=== PATIENT | male | born 1965 | race Caucasian/White ===

== ENCOUNTER 2017-03-10 09:10 | Emergency (ER) | payer BC ==
[2017-03-10 09:25] VITALS: BP 179/96
[2017-03-10] MEDS ORDERED: Aspirin Low Dose CHEW TAB* 81 MG ONE (09:31)
--- NOTE | 2017-03-10 11:01 | UC ---
Cardiac HPI - HPI Summary HPI Summary: 51 yo gentleman c/o on and off chest pain midsternal x approx 3 weeks. C/o episode pain this am approx 7am. + c/o anxiety sx, unclear whether cause or results of pain. Recent bronchitis possible sinusitis, completed levofloxacin. Still coughing a little. No fever. No sob perse. No rash. No n/v/d. Hx dm 2, htn. Works hard physically outdoors. No new weakness. No recent travel. - History of Current Complaint Chief Complaint: UCChestPain Stated Complaint: CHEST PAIN Time Seen by Provider: 03/10/17 09:11 Hx Obtained From: Patient Pain Intensity: 3 - Allergy/Home Medications Allergies/Adverse Reactions: Allergies Allergy/AdvReac Type Severity Reaction Status Date / Time Amoxicillin [From Augmentin] Allergy makes Verified 03/10/17 09:19 things worse Clavulanic Acid Allergy makes Verified 03/10/17 09:19 [From Augmentin] things worse Dust Mite Extract Allergy Eyes Verified 08/01/13 09:22 Itchy/Swollen/Red/Watery dairy Allergy GI Upset Uncoded 08/01/13 09:23 Home Medications: Home Medications Sitagliptin Phosphate [Januvia] 100 mg PO DAILY 03/10/17 [History Confirmed 03/17] PMH/Surg Hx/FS Hx/Imm Hx Previously Healthy: Yes - however, see hpi - Surgical History Surgical History: None - Social History Alcohol Use: Occasionally Substance Use Type: None Smoking Status (MU): Never Smoked Tobacco Review of Systems Constitutional: Negative Skin: Negative Eyes: Negative ENT: Negative Respiratory: Cough, Other - see hpi Cardiovascular: Negative Gastrointestinal: Negative Genitourinary: Negative Motor: Negative Neurovascular: Negative Musculoskeletal: Arthralgia Neurological: Negative - no new reported Psychological: Other - see hpi Is Patient Immunocompromised?: No All Other Systems Reviewed And Are Negative: Yes Physical Exam Triage Information Reviewed: Yes Appearance: Well-Nourished Vital Signs: Initial Vital Signs Temp 97.8 F 03/10/17 09:22 Pulse 60 03/10/17 09:22 Resp 16 03/10/17 09:22 BP 179/96 03/10/17 09:22 Pulse Ox 99 03/10/17 09:22 Vital Signs Reviewed: Yes Eye Exam: Normal - grossly normal ENT Exam: Normal - grossly normal Neck: Positive: Supple Respiratory Exam: Other - c/o midsternal discomfort Respiratory: Positive: Lungs clear, Normal breath sounds, No respiratory distress, No accessory muscle use Cardiovascular Exam: Normal Cardiovascular: Positive: RRR - correlates with left radial pulse, No Murmur, Pulses Normal, Brisk Capillary Refill Abdominal Exam: Normal Musculoskeletal Exam: Normal - moves all 4 ext's, gait steady. Neurological Exam: Normal - detailed neuro exam not done. Grossly nonfocal. Does have hx chronic p/d. Psychological Exam: Normal - conversing easily and appropriately. understandably concerned Skin Exam: Normal - nondiaphoretic. good color. - Assessment/Plan Course Of Treatment: Reviewed past ekg from 2013. Similar to today, but today v2 inverted T. Took aspirin x 4 (Adult) this am prior to arrival, as such this was not given here. Would benefit from eval / management in ED. After consideration, he agrees albeit reluctantly to go to the ED. Will drive himself. I called ED, MD/ PA/FRUIT CULLER not available, as such spoke with Alison LIND who will pass on the info to the appropriate provider. Questions as posed answered to the best of my ability. Consider cardiac, pulmonary, endocrine, anxiety. - Clinical Impression Provider Diagnoses: chest pain Discharge - Discharge Plan Condition: Stable Disposition: HOME Referrals: Dangelo Connell MD [Primary Care Provider] - Additional Instructions: Please go directly to the Emerg Department.
[2017-03-11] MEDS ORDERED: Aspirin Low Dose CHEW TAB* 81 MG PO SCH (09:00)
== END 2017-03-10 09:45 | disposition home or self-care (01) ==
LOC: UCEAST 09:10
DX: R07.9 Chest pain, unspecified (principal); Z88.1 Allergy status to other antibiotic agents
CPT/HCPCS: 93005; 99212; A9270-GY; G0463

== ENCOUNTER 2017-03-10 10:06 | Emergency (ER) | payer BC ==
[2017-03-10] MEDS ORDERED: Nitroglycerin TAB 0.4 MG* 0.4 MG TAB SL ONE (11:03)
[2017-03-10 11:18] LABS: Hematocrit 43 % (42-52); Hemoglobin 14.9 g/dl (14.0-18.0); Mean Corpuscular HGB Conc 35 g/dl (31-36); Mean Corpuscular Hemoglobin 32 pg (27-31); Mean Corpuscular Volume 92 fL (80-94); Mean Platelet Volume 8 um3 (7.4-10.4); Red Blood Count 4.63 10^6/ul (4.0-5.4); Red Cell Distribution Width 13 % (10.5-15); White Blood Count 7.4 10^3/ul (3.5-10.8)
[2017-03-10 11:34] LABS: Albumin 4.8 g/dL (3.2-5.2); BUN/Creatinine Ratio 9.1 (8-20); Calcium 9.9 mg/dL (8.6-10.3); EGFR African American 81.3 (>60); EGFR Non-African American 63.2 (>60); Potassium 4.1 mmol/L (3.5-5.0); Total Bilirubin 0.9 mg/dL (0.2-1.0); Total Protein 7.8 g/dL (6.4-8.9)
--- NOTE | 2017-03-10 11:59 | RAD ---
HISTORY: Chest pain COMPARISONS: August 01, 2013 VIEWS: 4: Frontal dual-energy and lateral views of the chest. FINDINGS: CARDIOMEDIASTINAL SILHOUETTE: The cardiomediastinal silhouette is normal. JIAN: The jian are normal. PLEURA: The costophrenic angles are sharp. No pleural abnormalities are noted. LUNG PARENCHYMA: The lungs are clear. ABDOMEN: The upper abdomen is clear. There is no subphrenic gas. BONES AND SOFT TISSUES: No bone or soft tissue abnormalities are noted. OTHER: None. IMPRESSION: NO ACTIVE CARDIOPULMONARY DISEASE.
[2017-03-10 19:28] VITALS: BP 138/100
--- NOTE | 2017-03-13 12:25 | ED ---
Franchesca Mills Thomas, scribed for Casimiro Huerta MD on 03/10/17 at 1114 . HPI Chest Pain - HPI Summary HPI Summary: The pt is a 51 y/o M presenting to the ED c/o intermittent mid-sternal CP that began three weeks ago. The pt rates the pain 3/10. The CP does not radiate. He has a Hx of of anxiety and says that his CP is worsened when he becomes anxious. However, he still has CP even when not anxious. His CP is not worsened with deep breaths. The patient took ASA 324 earlier today. When he experiences CP, he sometimes has tingling in his neck as well as blurry vision. He additionally c/o a cough with clear production and intermittent SOB. He denies hemoptysis. PMHx: DM, HTN, seasonal allergies. SHx: no smoking, occasional alcohol use. He last had a stress test performed three years ago. The patient does not want to be admitted for observation even when informed of the risks including ACS. - History of Current Complaint Chief Complaint: EDChestPainROMI Time Seen by Provider: 03/10/17 10:44 Hx Obtained From: Patient Onset/Duration: Started Weeks Ago - onset of CP three weeks ago, Still Present Timing: Intermittent Pain Intensity: 3 Pain Scale Used: 0-10 Numeric Chest Pain Location: Mid Sternal Chest Pain Radiates: No Aggravating Factor(s): Other: - Anxiety Alleviating Factor(s): Nothing Associated Signs and Symptoms: Positive: Chest Pain, Anxiety, Shortness of Breath - intermittent, Other: - Blurry vision. Negative: Productive Cough - with clear production, Hemoptysis - Allergy/Home Medications Allergies/Adverse Reactions: Allergies Allergy/AdvReac Type Severity Reaction Status Date / Time Amoxicillin [From Augmentin] Allergy makes Verified 03/10/17 09:19 things worse Clavulanic Acid Allergy makes Verified 03/10/17 09:19 [From Augmentin] things worse Dust Mite Extract Allergy Eyes Verified 08/01/13 09:22 Itchy/Swollen/Red/Watery dairy Allergy GI Upset Uncoded 08/01/13 09:23 Home Medications: Home Medications Atenolol TAB* [Tenormin TAB* 25 MG] 50 mg PO DAILY 03/10/17 [History Confirmed 03/10/17] Atorvastatin* [Lipitor*] 10 mg PO DAILY 03/10/17 [History Confirmed 03/10/17] Beclomethasone Dipropionate (N [Qnasl] 2 spray BOTH NARES DAILY 03/10/17 [ History Confirmed 03/10/17] DOXYcycline CAP(*) [DOXYcycline 100MG CAP(*)] 100 mg PO DAILY 03/10/17 [History Confirmed 03/10/17] Febuxostat(NF) [Uloric(NF)] 40 mg PO DAILY 03/10/17 [History Confirmed 03/10/17] Montelukast Sodium TAB* [Singulair TAB*] 10 mg PO DAILY 03/10/17 [History Confirmed 03/10/17] SitaGLIPtin (NF) [Januvia (NF)] 100 mg PO DAILY 03/10/17 [History Confirmed 03/17] PMH/Surg Hx/FS Hx/Imm Hx Previously Healthy: No Endocrine/Hematology History: Reports: Hx Diabetes - po meds /diet controlled Cardiovascular History: Reports: Hx Hypertension Denies: Hx Pacemaker/ICD History: Denies: Hx Renal Disease Sensory History: Denies: Hx Hearing Aid Psychiatric History: Denies: Hx Panic Disorder - Surgical History Surgery Procedure, Year, and Place: None - Immunization History Date of Tetanus Vaccine: Unknown Infectious Disease History: No Infectious Disease History: Denies: Hx Clostridium Difficile, Hx Hepatitis, Hx Human Immunodeficiency Virus (HIV), Hx of Known/Suspected MRSA, Hx Shingles, Hx Tuberculosis, Hx Known/ Suspected VRE, Hx Known/Suspected VRSA, History Other Infectious Disease, Traveled Outside the [place] in Last 30 Days - Family History Known Family History: Negative: Cardiac Disease - Social History Alcohol Use: Occasionally Substance Use Type: Reports: None Smoking Status (MU): Never Smoked Tobacco Review of Systems Negative: Fever, Chills Positive: Blurred Vision. Negative: Erythema - eyes Negative: Sore Throat Positive: Chest Pain - mid sternal CP onset three weeks ago and worsened with anxiety Positive: Shortness Of Breath, Cough - with clear production. Negative: Other - NEGATIVWE: hemoptysis Negative: Abdominal Pain, Vomiting, Nausea Negative: dysuria, hematuria Negative: Myalgia, Edema - legs Negative: Rash Neurological: Other - NEGATIVE: dizziness All Other Systems Reviewed And Are Negative: Yes Physical Exam - Summary Physical Exam Summary: Constitutional: Well-developed, Well-nourished, Alert. (-) Distressed Skin: Warm, Dry HENT: Normocephalic; Atraumatic Eyes: Conjunctiva normal Neck: Musculoskeletal ROM normal neck. (-) JVD, (-) Stridor, (-) Tracheal deviation Cardio: Rhythm regular, rate normal, Heart sounds normal; Intact distal pulses; The pedal pulses are 2+ and symmetric. Radial pulses are 2+ and symmetric. (-) Murmur Pulmonary/Chest wall: Effort normal. (-) Respiratory distress, (-) Wheezes, (-) Rales Abd: Soft, (-) Tenderness, (-) Distension, (-) Guarding, (-) Rebound Musculoskeletal: (-) Edema Lymph: (-) Cervical adenopathy Neuro: Alert, Oriented x3 Psych: Mood and affect Normal Vital Signs On Initial Exam: Initial Vitals Temp Pulse Resp BP Pulse Ox 98.0 F 56 14 164/92 98 03/10/17 10:15 03/10/17 10:15 03/10/17 10:15 03/10/17 10:15 03/10/17 10:15 Diagnostics - Vital Signs Vital Signs Temp Pulse Resp BP Pulse Ox 03/10/17 10:15 98.0 F 56 14 164/92 98 - Laboratory Lab Results: Lab Results 03/10/17 03/10/17 03/10/17 Range/Units 11:05 11:05 11:05 WBC 7.4 (3.5-10.8) 10^3/ul RBC 4.63 (4.0-5.4) 10^6/ul Hgb 14.9 (14.0-18.0) g/dl Hct 43 (42-52) % MCV 92 (80-94) fL MCH 32 H (27-31) pg MCHC 35 (31-36) g/dl RDW 13 (10.5-15) % Plt Count 143 L (150-450) 10^3/ul MPV 8 (7.4-10.4) um3 Neut % (Auto) 76.8 (38-83) % Lymph % (Auto) 15.5 L (25-47) % Yell % (Auto) 6.6 (1-9) % Eos % (Auto) 0.4 (0-6) % Baso % (Auto) 0.7 (0-2) % Absolute Neuts (auto) 5.6 (1.5-7.7) 10^3/ul Absolute Lymphs (auto) 1.1 (1.0-4.8) 10^3/ul Absolute Monos (auto) 0.5 (0-0.8) 10^3/ul Absolute Eos (auto) 0 (0-0.6) 10^3/ul Absolute Basos (auto) 0 (0-0.2) 10^3/ul Absolute Nucleated RBC 0.01 10^3/ul Nucleated RBC % 0.2 D-Dimer, Quantitative < 200 (Less Than 230) ng/mL Sodium 137 (133-145) mmol/L Potassium 4.1 (3.5-5.0) mmol/L Chloride 104 (101-111) mmol/L Carbon Dioxide 26 (22-32) mmol/L Anion Gap 7 (2-11) mmol/L BUN 11 (6-24) mg/dL Creatinine 1.21 H (0.67-1.17) mg/dL Est GFR ( Amer) 81.3 (>60) Est GFR (Non-Af Amer) 63.2 (>60) BUN/Creatinine Ratio 9.1 (8-20) Glucose 154 H (70-100) mg/dL Lactic Acid (0.5-2.0) mmol/L Calcium 9.9 (8.6-10.3) mg/dL Total Bilirubin 0.90 (0.2-1.0) mg/dL AST 36 (13-39) U/L ALT 36 (7-52) U/L Alkaline Phosphatase 68 (34-104) U/L Troponin I 0.00 (<0.04) ng/mL Total Protein 7.8 (6.4-8.9) g/dL Albumin 4.8 (3.2-5.2) g/dL Globulin 3.0 (2-4) g/dL Albumin/Globulin Ratio 1.6 (1-3) 03/10/17 03/10/17 Range/Units 11:05 13:42 WBC (3.5-10.8) 10^3/ul RBC (4.0-5.4) 10^6/ul Hgb (14.0-18.0) g/dl Hct (42-52) % MCV (80-94) fL MCH (27-31) pg MCHC (31-36) g/dl RDW (10.5-15) % Plt Count (150-450) 10^3/ul MPV (7.4-10.4) um3 Neut % (Auto) (38-83) % Lymph % (Auto) (25-47) % Yell % (Auto) (1-9) % Eos % (Auto) (0-6) % Baso % (Auto) (0-2) % Absolute Neuts (auto) (1.5-7.7) 10^3/ul Absolute Lymphs (auto) (1.0-4.8) 10^3/ul Absolute Monos (auto) (0-0.8) 10^3/ul Absolute Eos (auto) (0-0.6) 10^3/ul Absolute Basos (auto) (0-0.2) 10^3/ul Absolute Nucleated RBC 10^3/ul Nucleated RBC % D-Dimer, Quantitative (Less Than 230) ng/mL Sodium (133-145) mmol/L Potassium (3.5-5.0) mmol/L Chloride (101-111) mmol/L Carbon Dioxide (22-32) mmol/L Anion Gap (2-11) mmol/L BUN (6-24) mg/dL Creatinine (0.67-1.17) mg/dL Est GFR ( Amer) (>60) Est GFR (Non-Af Amer) (>60) BUN/Creatinine Ratio (8-20) Glucose (70-100) mg/dL Lactic Acid 1.0 (0.5-2.0) mmol/L Calcium (8.6-10.3) mg/dL Total Bilirubin (0.2-1.0) mg/dL AST (13-39) U/L ALT (7-52) U/L Alkaline Phosphatase (34-104) U/L Troponin I 0.00 (<0.04) ng/mL Total Protein (6.4-8.9) g/dL Albumin (3.2-5.2) g/dL Globulin (2-4) g/dL Albumin/Globulin Ratio (1-3) Result Diagrams: 03/10/17 11:05 03/10/17 11:05 Lab Statement: Any lab studies that have been ordered have been reviewed, and results considered in the medical decision making process. - Radiology CXR Xray Interpretation: No Acute Changes - No active cardiopulmonary diseased. ED physician has reviewed this report and agrees. Radiology Interpretation Completed By: Radiologist - EKG 10:45 Cardiac Rate: NL - 53 BPM EKG Rhythm: Sinus Bradycardia EKG Interpretation: No STEMI Chest Pain Course/Dx - Course Assessment/Plan: The pt is a 51 y/o M presenting to the ED c/o intermittent mid- sternal CP that began three weeks ago. The pt rates the pain 3/10. The CP does not radiate. He has a Hx of of anxiety and says that his CP is worsened when he becomes anxious. However, he still has CP even when not anxious. His CP is not worsened with deep breaths. The patient took ASA 324 earlier today. When he experiences CP, he sometimes has tingling in his neck as well as blurry vision. He additionally c/o a cough with clear production and intermittent SOB. He denies hemoptysis. PMHx: DM, HTN, seasonal allergies. SHx: no smoking, occasional alcohol use. He last had a stress test performed three years ago. The patient does not want to be admitted for observation even when informed of the risks including ACS. In the ED course the patient was given NTG. Bloodwork was obtained and troponin #1 0.00, troponin #2 0.00, and D-dimer less than 200. EKG was negative for STEMI. The patient is diagnosed with CP and anxiety. The patient has decided to leave against medical advice. I printed gave the patient information detailing how to follow up with cardiology, although I made it explicitly clear to him that he was still leaving against medical advice. I attempted to arrange an outpatient stress test, but this is not possible from the emergency department. - Diagnoses Provider Diagnoses: Chest pain, unspecified - Provider Notifications Discussed Care Of Patient With: Jesus Whitaker Time Discussed With Above Provider: 13:43 Instructed by Provider To: Other - I consulted with Dr. Whitaker, cardiology, regarding the scheduling of an urgent stress test as the patient is unwilling to be admitted for observation. Discharge - Discharge Plan Condition: Fair Disposition: AGAINST MEDICAL ADVICE Referrals: Jesus Whitaker MD [Medical Doctor] - As Soon As Possible The documentation as recorded by the Franchesca thomas Thomas accurately reflects the service I personally performed and the decisions made by me, Casimiro Huerta MD.
== END 2017-03-10 15:33 | disposition left against medical advice (07) ==
LOC: ED 10:06
DX: R07.9 Chest pain, unspecified (principal); F41.9 Anxiety disorder, unspecified; R06.02 Shortness of breath; H53.8 Other visual disturbances
CPT/HCPCS: 36415; 71020; 80053; 83605; 84484; 85025; 85379; 93005; 99283

== ENCOUNTER 2023-12-23 08:23 | Inpatient (IN) ==
[2023-12-23 09:20] LABS: Hematocrit 29.7 % (38-53); Mean Corpuscular Hemoglobin 31.7 pg (27-33); Mean Corpuscular Hgb Conc 33.5 g/dL (31-36); Mean Corpuscular Volume 94.6 fL (80-97); Red Blood Count 3.14 10^6/uL (4.06-5.63); Red Cell Distribution Width 19.3 % (12-17); White Blood Count 6.2 10^3/uL (3.6-10.2)
[2023-12-23] MEDS: Cefepime 2 GM in Dextrose 2 GM/50 ML BAG IV ONE (09:25)
[2023-12-23] MEDS: Lactated Ringers 1000 ml BAG 1,000 ML IV ONE (09:25)
[2023-12-23] MEDS: Lactated Ringers SEPSIS* BAG 2,260 ML IV ONE (09:32)
[2023-12-23 10:01] LABS: Albumin/Globulin Ratio 0.5 (1-3); Calcium 8.3 mg/dL (8.6-10.3); Creatinine, Serum 2.23 mg/dL (0.67-1.17); Total Bilirubin 3.8 mg/dL (0.2-1.0); eGFR CKD-EPI 33.5 (>60)
[2023-12-23] MEDS: Vancomycin 1,250 MG in NS 0.9% 250 ml 250 ML IVPB ONE (10:07)
[2023-12-23 10:17] LABS: High Sens Troponin Baseline 4 pg/mL (<20)
[2023-12-23 10:18] LABS: Venous Bicarbonate HCO3 13.8 mmol/L (24-28)
[2023-12-23 10:28] LABS: INR 1.9 (0.83-1.13)
[2023-12-23 10:41] LABS: ABS Basophils 0.1 10^3/uL (0.0-0.1); ABS Eosinophils 0.1 10^3/uL (0.0-0.5); ABS Monocytes 0.3 10^3/uL (0.0-1.1); ABS Neutrophils 4.8 10^3/uL (1.5-7.6); Eosinophil % 1.3 %; Lymphocyte % 15.5 %; Mean Platelet Volume 8.3 fL (7.5-11.2); Platelet Count 164 10^3/uL (150-450)
[2023-12-23 10:47] LABS: High Sensitivity Troponin 1 Hr 3 pg/mL (<20)
[2023-12-23 11:04] LABS: C Reactive Protein 13.09 mg/L (<8.01); Lipase < 10 U/L (11.0-82.0)
[2023-12-23] MEDS: Norepinephrine 4 MG/250mL D5W 4,000 MCG/250 ML BAG IV SCH ×2 (11:13→14:41)
[2023-12-23] MEDS ORDERED: Ondansetron 4 mg VIAL 2 MG/ML 2 ml VIAL IV PRN (14:59)
[2023-12-23] MEDS: Midazolam 2 mg/2 ml VIAL 1 mg/ml 2 ml VIAL (2 mg) IV SLOW PU ONE (17:41)
[2023-12-23 21:00] VITALS: BP 84/59
[2023-12-23] MEDS: Cefepime 2 GM in Dextrose 2 GM/50 ML BAG IV SCH (21:26)
[2023-12-23] MEDS: Heparin 5000 UNITS/ML 1 mL VIAL SUBCUT SCH (21:26)
[2023-12-23 21:45] LABS: Venous Bicarbonate HCO3 19.3 mmol/L (24-28)
[2023-12-23] MEDS: Albumin Human 5% 25 GM/500 ML BTL IV ONE (22:47)
[2023-12-23 22:55] LABS: Urine Appearance Turbid; Urine Bilirubin 1+ (Negative); Urine Blood 1+ (Negative); Urine Glucose Negative (Negative); Urine Ketones Negative (Negative); Urine Nitrite Negative (Negative); Urine Protein 1+ (>=30 mg/dL) (Negative); Urine Specific Gravity 1.022 (1.002-1.030); Urine Urobilinogen 1+ (Negative); Urine pH 5.5 (5.0-8.0)
[2023-12-23 23:02] LABS: Urine Bacteria Absent /HPF (Absent); Urine Red Blood Cell 1+(3-5/hpf) /HPF (0-Trace); Urine Squamous Epithelial Cell Present /HPF (Absent); Urine White Blood Cell 1+(6-10/hpf) /HPF (0-Trace)
[2023-12-23] MEDS: LORazepam 2 mg VIAL 1 ml IV PUSH SCH (23:05)
[2023-12-23 23:15] LABS: Urine Color Amber
[2023-12-24] MEDS: Thiamine 100 MG/ML 2 ml VIAL (200 mg) IM ONE (00:20)
[2023-12-24] MEDS: Albumin Human 25% 50 GM/200 ML BTL IV ONE (02:50)
[2023-12-24] MEDS: Albumin Human 25% 25 GM/100 ML BTL IV SCH (03:41)
[2023-12-24] MEDS: Norepinephrine *QUAD STRENGTH* 16 mg/250 mL NS PREMIX (ICU ONLY) IV SCH (03:41)
[2023-12-24 04:40] LABS: Albumin 2.5 g/dL (3.2-5.2); Albumin/Globulin Ratio 0.8 (1-3); Calcium 8.2 mg/dL (8.6-10.3); Creatinine, Serum 2.6 mg/dL (0.67-1.17); Globulin 3.2 g/dL (2-4); Magnesium 1.6 mg/dL (1.9-2.7); Potassium 5.2 mmol/L (3.5-5.0); Total Bilirubin 3.8 mg/dL (0.2-1.0); Total Protein 5.7 g/dL (6.4-8.9); eGFR CKD-EPI 27.9 (>60)
[2023-12-24 04:45] LABS: Hematocrit 25.2 % (38-53); Hemoglobin 8.6 g/dL (13.2-16.3); Mean Corpuscular Hemoglobin 31.7 pg (27-33); Mean Corpuscular Volume 93.3 fL (80-97); Red Cell Distribution Width 18.9 % (12-17); White Blood Count 13.1 10^3/uL (3.6-10.2)
[2023-12-24 05:16] LABS: T4, Total 2.66 mcg/dL (6.09-12.23)
[2023-12-24 05:20] LABS: TSH Ultra Thyroid Stim Horm 45.21 mcIU/mL (0.34-5.60)
[2023-12-24 05:39] LABS: ABS Lymphocytes 1.7 10^3/uL (1.0-4.8); ABS Monocytes 1.5 10^3/uL (0.0-1.1); ABS Neutrophils 9.9 10^3/uL (1.5-7.6); ABS Nucleated RBC 0.01 10^3/ul; Eosinophil % 0.1 %; Lymphocyte % 12.9 %; Nucleated Red Blood Cells % 0.1 %/100WBC (0.0-0.8); Platelet Count 124 10^3/uL (150-450)
[2023-12-24 05:40] LABS: Anisocytosis 2+
[2023-12-24] MEDS ORDERED: Lorazepam PYXIS KEY PRN (07:18)
[2023-12-24] MEDS: Magnesium Sulfate 2 gm BAG 2 GM/50 ML BAG IVPB ONE ×2 (08:02→11:10)
[2023-12-24] MEDS: Morphine 4 MG/ML VIAL (1 ml) ONE (08:55)
[2023-12-24] MEDS: Sulfur Hexaflouride MICROSPHR 25 MG VIAL IV ONE (09:12)
[2023-12-24] MEDS ORDERED: Vancomycin per Pharmacy 1 EA NOTE FOLLOW UP SCH (10:00)
[2023-12-24] MEDS: Multivitamins/Minerals TAB PO SCH (11:10)
[2023-12-24] MEDS: Albumin Human 5% 0 GM/0 ML BTL IV ONE (11:13)
[2023-12-24] MEDS: Albumin Human 25% 0 GM/0 ML BTL IV ONE (11:43)
[2023-12-24 12:25] LABS: Body Fluid Total Nucleated 4810 /mcL
[2023-12-24 13:00] LABS: Body Fluid Mono 16 %; Body Fluid Total Cells Counted 200
[2023-12-24 13:02] LABS: Body Fluid Appearance Cloudy; Body Fluid Color Yellow; Body Fluid Source Peritonial Fluid
[2023-12-24 14:17] LABS: Calcium 8.4 mg/dL (8.6-10.3); Creatinine, Serum 2.67 mg/dL (0.67-1.17); Potassium 5.3 mmol/L (3.5-5.0); Vancomycin Random 9.4 mcg/mL
[2023-12-24] MEDS: Vancomycin Random Level NOTE FOLLOW UP ONE (14:31)
[2023-12-24] MEDS: Vancomycin 1000 MG in NS 0.9% 250 ML IVPB ONE (16:06)
[2023-12-24] MEDS ORDERED: LORazepam 2 mg VIAL 1 ml IV PUSH PRN (18:59)
[2023-12-24] MEDS: LORazepam 2 mg VIAL 1 ml IV PUSH SCH (20:11)
[2023-12-25] MEDS: Atropine 1% (ORAL/SL) 15 ML BTL SL PRN (02:36)
[2023-12-25] MEDS: Vancomycin Random Level NOTE FOLLOW UP ONE (04:05)
[2023-12-25] MEDS: Morphine 10 MG/ML VIAL (1 ml) IV PRN ×3 (10:28→15:21)
[2023-12-25 14:53] LABS: BF PH 7.6
[2023-12-25] MEDS: LORazepam 2 mg VIAL 1 ml IV PUSH SCH (14:59)
[2023-12-25 15:04] LABS: Fluid Type, Protein, Total Peritoneal Fluid; Lactate Dehydrogenase, BF 116 U/L; Total Protein, BF 0.8 g/dL
== END 2023-12-25 15:51 | disposition expired | DRG 279 ==
LOC: ED 08:23 → EDHOLD 13:49 → ICU 15:11
PROVIDERS: ADMIT Student in an Organized Health Care Education/Training Program; ATTEND Internal Medicine Critical Care Medicine